=== PATIENT | male | born 1985 | race Caucasian/White ===

== ENCOUNTER → 2020-01-04 | Emergency (ER) | payer BC, MEDICAID, SELFPAY ==
[~2020-01-04] MED LIST: KETOROLAC 30 MG/ML 1ML VIAL As Ordered ONE; KETOROLAC 30 MG/ML 1ML VIAL ONE; MORPHINE 2 MG/ML 1ML VIAL (J2270) As Ordered ONE; MORPHINE 2 MG/ML 1ML VIAL (J2270) ONE; MORPHINE 4 MG/ML 1ML VIAL/SYRINGE (J2270) As Ordered ONE; MORPHINE 4 MG/ML 1ML VIAL/SYRINGE (J2270) ONE; ONDANSETRON 4MG/2ML VIAL As Ordered ONE; ONDANSETRON 4MG/2ML VIAL ONE; OXYCODONE/APAP 5MG/325MG(BULK FOR ED) 1 TABLET As Ordered ONE; OXYCODONE/APAP 5MG/325MG(BULK FOR ED) 1 TABLET ONE; TAMSULOSIN 0.4 MG CAP As Ordered ONE; TAMSULOSIN 0.4 MG CAP ONE
[2020-02-18 13:26] LABS: APPEARANCE, URINE MANUAL CLOUDY (CLEAR); BILIRUBIN, URINE MANUAL NEGATIVE (NEGATIVE); COLOR, URINE MANUAL DK YELLOW (YELLOW); GLUCOSE, URINE (UA) MANUAL NEGATIVE (NEGATIVE); KETONE, URINE MANUAL NEGATIVE (NEGATIVE); PROTEIN, URINE MANUAL 1+ mg/dL (NEGATIVE); UROBILINOGEN, URINE MANUAL 1 MG mg/dl (NORMAL)
[2020-02-18 13:27] LABS: BACTERIA, URINE SMALL AMOUNT; BLOOD URINE MANUAL POSITIVE (NEGATIVE); HYALINE CAST, URINE NONE SEEN /lpf (0-1); LEUKOCYTE ESTERASE, URINE MAN TRACE (NEGATIVE); MUCUS, URINE SMALL AMOUNT (NEGATIVE); NITRITE, URINE MANUAL NEGATIVE (NEGATIVE); RBC, URINE 60-70 /hpf (0-3); SQUAMOUS EPITHELIAL CELL URINE NONE SEEN /hpf (SMALL AMT)
== END | disposition home or self-care (01) ==
LOC: M ED 20:40
DX: N20.2 Calculus of kidney with calculus of ureter (principal); K59.00 Constipation, unspecified
CPT/HCPCS: 74176; 80047; 81000; 87086; 96374; 96375; 99284; J1885; J2270; J2405

== ENCOUNTER 2022-10-08 08:08 | Emergency (ER) | payer BC, MEDICAID ==
[~2022-10-08] VITALS: Ht 177.8 cm; Wt 95.4 kg
[2022-10-08] MEDS ORDERED: TAMSULOSIN 0.4 MG CAP PO ONE (10:45)
[2022-10-08] MEDS ORDERED: NS 1,000 ML IV ONE (10:45)
[2022-10-08] MEDS ORDERED: KETOROLAC 30 MG/ML 1ML VIAL IV ONE (10:45)
[2022-10-08 11:10] LABS: BASO % 0.3 % (0.0-1.0); EOS # 0.1 10^3/uL (0.0-0.5); EOS % 0.5 % (0.0-3.0); HEMATOCRIT 46.1 % (42.0-52.0); HEMOGLOBIN 15.7 g/dl (13.5-17.5); LYMPH # 1.2 10^3/uL (1.5-5.0); LYMPH % 11.9 % (24.0-44.0); MEAN CORPUSCULAR HEMOGLOBIN 31.2 pg (27.0-33.0); MEAN CORPUSCULAR HGB CONC 34.1 g/dl (32.0-36.5); MEAN CORPUSCULAR VOLUME 91.7 fl (80.0-96.0); MONO # 0.5 10^3/uL (0.0-0.8); NEUTROPHILS # 8.5 10^3/uL (1.5-8.5); NEUTROPHILS % 81.9 % (36.0-66.0); PLATELET COUNT, AUTOMATED 259 10^3/uL (150-450); RED BLOOD COUNT 5.03 10^6/uL (4.30-6.10); WHITE BLOOD COUNT 10.4 10^3/uL (4.0-10.0)
[2022-10-08 11:36] LABS: LIPASE 28 U/L (12-53)
[2022-10-08 11:39] LABS: ALBUMIN 3.9 G/DL (3.2-5.2); ALKALINE PHOSPHATASE 52 U/L (46-116); ALT/SGPT 37 U/L (7.0-40); AST/SGOT 26 U/L (<34); BILIRUBIN,DIRECT 0.7 MG/DL (<0.4); BILIRUBIN,TOTAL 1.9 MG/DL (0.3-1.2); BLOOD UREA NITROGEN 18 MG/DL (9-23); CARBON DIOXIDE LEVEL 29 MMOL/L (20-31); CHLORIDE LEVEL 105 MMOL/L (98-107); CREATININE FOR GFR 1.11 MG/DL (0.70-1.30); GLOMERULAR FILTRATION RATE > 60.0 (>60); GLUCOSE, FASTING 109 MG/DL (60-100); POTASSIUM SERUM 3.9 MMOL/L (3.5-5.1); SODIUM LEVEL 140 MMOL/L (136-145); TOTAL PROTEIN 6.8 G/DL (5.7-8.2)
[2022-10-08 12:39] LABS: APPEARANCE, URINE HAZY (CLEAR); BACTERIA, URINE AUTO NEGATIVE (NEGATIVE); BILIRUBIN, URINE AUTO NEGATIVE (NEGATIVE); BLOOD, URINE BLOOD 2+ (NEGATIVE); COLOR, URINE YELLOW (YELLOW); GLUCOSE, URINE (UA) AUTO NEGATIVE (NEGATIVE); KETONE, URINE AUTO TRACE mg/dL (NEGATIVE); LEUKOCYTE ESTERASE, URINE AUTO NEGATIVE (NEGATIVE); MUCUS, URINE SMALL (NEGATIVE); NITRITE, URINE AUTO NEGATIVE (NEGATIVE); PROTEIN, URINE AUTO NEGATIVE (NEGATIVE); RBC, URINE AUTO 62 /HPF (0-3); SPECIFIC GRAVITY URINE AUTO 1.019 (1.002-1.035); SQUAMOUS EPITHELIAL CELL UR AU 0 /HPF (0-6); UROBILINOGEN, URINE AUTO 0.2 mg/dL (0.0-2.0); WBC, URINE AUTO 2 /HPF (0-3)
[2022-10-08] MEDS ORDERED: HYDR-3713 PO (13:18)
[2022-10-08] MEDS ORDERED: NAPR-837 PO (13:18)
[2022-10-08] MEDS ORDERED: FLOM0.4C39 PO (13:18)
[2022-10-08 13:30] VITALS: BP 124/65
== END 2022-10-08 13:43 | disposition home or self-care (01) ==
LOC: M ED 08:08
DX: N20.1 Calculus of ureter (principal); R10.9 Unspecified abdominal pain; Z87.442 Personal history of urinary calculi; F17.200 Nicotine dependence, unspecified, uncomplicated
CPT/HCPCS: 74176; 80048; 80076; 81001; 83690; 85025; 96374; 99284; J1885